=== PATIENT | female | born 2005 | race Caucasian/White ===

== ENCOUNTER 2025-02-10 17:12 | Emergency (ER) | payer SELFPAY ==
[2025-02-10 17:17] VITALS: BP 97/73; PULSE 92; RESP 16; TEMP 36.6; O2SAT 100
--- NOTE | 2025-02-11 00:40 | ED.GENADULT ---
HPI - General Adult General Chief complaint: Skin/Abscess/Foreign Body Stated complaint: thing on my neck Time Seen by Provider: 02/11/25 00:31 History of Present Illness HPI narrative: Patient is 19-year-old female who presents emergency department with chief complaint of a large mean in the right side of her neck. The patient reports no trauma reports no injuries denies numbness or tingling denies arm weakness or arm discoloration the patient reports no weakness in her arm patient reports no prior medical conditions Review of Systems Review of Systems: A 10 system review of systems was completed on the patient and is negative except for what is stated in the HPI. Nursing and ancillary documentation was reviewed. Exam Narrative: GENERAL: Well-appearing, well-nourished, and in no acute distress. HEAD: Normocephalic, atraumatic. EYES: PERRLA and EOMI. ENT: Nares clear, no rhinorrhea or epistaxis. Mucous membranes moist. NECK: Supple. Prominent external jugular vein on the right side CHEST: Clear to auscultation. No respiratory distress. HEART: Regular rate and rhythm. No murmur heard. Normal peripheral pulses. ABDOMEN: Soft, nontender, nondistended, normal active bowel sounds. EXTREMITIES: Normal range of motion. No edema. SKIN: Warm, dry, no rash. NEURO: No focal deficits. Alert and oriented x3. PSYCH: Normal mood and affect. Course Vital Signs Vital signs: Vital Signs Temperature 36.6 C 02/10/25 17:17 Pulse Rate 92 02/10/25 17:17 Respiratory Rate 16 02/10/25 17:17 Blood Pressure 97/73 L 02/10/25 17:17 Pulse Oximetry 100 02/10/25 17:17 Oxygen Delivery Room Air 02/10/25 17:17 Temperature 36.6 C 02/10/25 17:17 Pulse Rate 92 02/10/25 17:17 Respiratory Rate 16 02/10/25 17:17 Blood Pressure 97/73 L 02/10/25 17:17 Pulse Oximetry 100 02/10/25 17:17 Oxygen Delivery Room Air 02/10/25 17:17 Medical Decision Making [facility] Narrative Medical decision making narrative: Differential diagnosis includes prominent external jugular vein, superior vena cava syndrome subclavian steal syndrome, thoracic outlet Patient shows no signs weakness with range of motion arm no peripheral edema no sensory deficits likelihood of this being superior vena cava syndrome or subclavian steal or thoracic outlet syndrome are extremely rare at this point there is no sign of DVT the right upper extremity Patient will be discharged follow-up with primary care Vital Signs Vital Signs: Vital Signs Temperature 36.6 C 02/10/25 17:17 Pulse Rate 92 02/10/25 17:17 Respiratory Rate 16 02/10/25 17:17 Blood Pressure 97/73 L 02/10/25 17:17 Pulse Oximetry 100 02/10/25 17:17 Oxygen Delivery Room Air 02/10/25 17:17 Temperature 36.6 C 02/10/25 17:17 Pulse Rate 92 02/10/25 17:17 Respiratory Rate 16 02/10/25 17:17 Blood Pressure 97/73 L 02/10/25 17:17 Pulse Oximetry 100 02/10/25 17:17 Oxygen Delivery Room Air 02/10/25 17:17 Discharge Plan Discharge Clinical Impression: Encounter for medical screening examination Patient Disposition: Home, Self-Care Condition: Stable Instructions: Antibiotic Form, Normal Exam (ED) Patient Language: Bahamian Follow-up/Referrals: Nicole Liriano MD [Physician] - PHYSICIAN NOT ON STAFF,NONSTAFF [Primary Care Provider] - Time of Disposition: 00:44
[2025-02-11 01:03] VITALS: BP 111/76; PULSE 86; RESP 18; O2SAT 100
[2025-02-11 01:06] VITALS: BP 111/76; PULSE 86; RESP 18; O2SAT 100
== END 2025-02-11 01:06 | disposition home or self-care (01) ==
LOC: ANHED 02-11 00:45
PROVIDERS: Emergency Provider Emergency Medicine
DX: R22.1 Localized swelling, mass and lump, neck (principal)
CPT/HCPCS: 99281